=== PATIENT | female | born 1975 | race American Indian/Alaskan Native ===

== ENCOUNTER 2019-05-12 06:22 | Observation (INO) | payer OTHER ==
[2019-05-10 14:35] LABS: Basophils % (Auto) 0.6 % (0.0-1.8); Eosinophils # (Auto) 0.1 K/mm3 (0.0-0.4); Eosinophils % (Auto) 0.9 % (0.0-4.3); Hematocrit 35.4 % (30.3-42.9); Lymphocytes # (Auto) 3.3 K/mm3 (1.2-5.4); Lymphocytes % (Auto) 41.8 % (13.4-35.0); Mean Corpuscular HGB Conc 34 % (30-34); Mean Corpuscular Volume 86 fl (79-97); Monocytes # (Auto) 0.7 K/mm3 (0.0-0.8); Monocytes % (Auto) 8.9 % (0.0-7.3); Platelet Count 251 K/mm3 (140-440); Red Blood Count 4.11 M/mm3 (3.65-5.03); Red Cell Distribution Width 14.3 % (13.2-15.2)
--- NOTE | 2019-05-10 14:42 | Anesthesia Consultation ---
Anesthesia Consult and Med Hx Date of service: 05/10/19 - Airway Anesthetic Teeth Evaluation: Good ROM Head & Neck: Adequate Mental/Hyoid Distance: Adequate Mallampati Class: Class II Intubation Access Assessment: Probably Good - Pulmonary Exam CTA: Yes - Cardiac Exam Cardiac Exam: RRR - Pre-Operative Health Status ASA Pre-Surgery Classification: ASA2 Proposed Anesthetic Plan: General - Pulmonary Hx Smoking: No Hx Respiratory Symptoms: No - Cardiovascular System Hx Hypertension: No (HLD) Hx Heart Attack/AMI: No Hx Cardia Arrhythmia: No - Central Nervous System Hx Seizures: No CVA: No Hx Psychiatric Problems: Yes (anxiety; prn xanax) - Gastrointestinal Hx Gastroesophageal Reflux Disease: No - Endocrine Hx Renal Disease: No Hx Liver Disease: No Hx Insulin Dependent Diabetes: No Hx Non-Insulin Dependent Diabetes: No Hx Thyroid Disease: No - Hematic Hx Anemia: No - Other Systems Hx Alcohol Use: Yes (Occas) Hx Obesity: Yes - Additional Comments Anesthesia Medical History Comments: No hx anesthetic complications. Patient had episode of substernal chest pain in 12/2018 for which she was admitted for cardiac work up. Per discharge summary, cardiac etiology ruled out (actual studies not available for review). >4 mets functional capacity.
[2019-05-10 14:48] LABS: BUN/Creatinine Ratio 13; Blood Urea Nitrogen 10 mg/dL (7-17); Calcium 8.8 mg/dL (8.4-10.2); Hemolysis Index 20
--- NOTE | 2019-05-11 17:36 | History and Physical Report ---
History of Present Illness Date of examination: 05/02/19 History of present illness: Patient has been reassessed/reevaluated. H&P has been reviewed. No interval changes. This is a 43 years old female who complains of menorrhagia and dysmenorrhea The patient notes that she is sexually active and uses contraception. The patient also presents with menstrual disorder. She complains of heavy bleeding, dysmenorrhea, clotting and cramping, but denies irregular menses, mid-cycle spotting, lack of menses, history of ovarian cysts, history of thyroid diseases, history of PCOS, history of bleeding disorder, lightheadedness and fatigue. Interval between menses is 28 days and 30 days. Menstrual flow lasts 7 days and > 7 days. Patient reports that for pain she uses ibuprofen. Patient's work up has included hysterosonogram which revealed a 4cm fundal myoma clear cavity and endometrial biopsy showed benign endometrium. Patient's symptoms when present disrupts her normal daily activities Patient desires definitive treatment Vital Signs: Patient Profile: 44 Years Old Female LMP: 04/27/2019 Height: 61 inches (154.94 cm) Weight: 184 pounds (83.64 kg) BMI: 34.76 BSA: 1.82 Menstrual History: LMP (date): 04/27/2019 Current Method of Contraception: BTL Past History : 2 Term Births: 2 Premature Births: 0 Living Children: 2 Para: 2 Mult. Births: 0 Prev : 2 Aborta: 0 Elect. Ab: 0 Spont. Ab: 0 Ectopics: 0 RESEARCH AND DEVELOPMENT DIRECTOR History Uterine Surgery (not C/S): negative Operations: hand sx C-sectionX2 last with btl Hospitalizations: negative Anesthesia Complications: negative Abnormal PAP: negative Uterine Anomaly: positive fibroids LARISSA Exposure: negative Infertility: negative Infection History HIV Risk Eval: no Personal hx. of genital herpes: no Partner hx. of genital herpes: no Hx of STD: condyloma Current Allergies (reviewed today): No known allergies Past Medical History: MVP Hyperlipidemia hospitalization x 3 days chest pain Patient states no diagnosis made (11/2018) Past Surgical History: hand sx C-sectionX2 last with btl Social History: Patient is occ etoh/no drugs/ Risk Factors: Smoked Tobacco Use: Never smoker Smokeless Tobacco Use: Never Passive smoke exposure: no Drug use: no HIV high-risk behavior: no Alcohol use: yes Exercise: yes Seatbelt use: 100 % Review of Systems General Denies fever, chills, sweats, anorexia, fatigue, weakness, malaise, weight loss and sleep disorder. Complains of menorrhagia, abnormal vaginal bleeding, pelvic pain and painful periods. Denies vaginal discharge, incontinence, dysuria, hematuria, urinary frequency, amenorrhea, genital sores, decreased libido, painful sex, urinary urgency, hot flashes, vaginal dryness, vaginal itching and vaginal odor. CV Denies chest pains, palpitations, syncope, dyspnea on exertion, orthopnea, PND and peripheral edema. Resp Denies cough, dyspnea at rest, excessive sputum, hemoptysis, wheezing and pleurisy. GI Denies nausea, vomiting, diarrhea, constipation, change in bowel habits, abdominal pain, melena, hematochezia, jaundice, gas/bloating, indigestion/heartburn, dysphagia and odynophagia. Breast Denies left breast lump, right breast lump, nipple discharge, bloody discharge from nipple, breast pain, abnormal mammogram and breast enlargement. Psych Denies depression, anxiety, irritability and mood swings. [ Past History Past Medical History: other (SEE HPI) Past Surgical History: Other (SEE HPI) Social history: , full code (SEE HPI) Family history: other (SEE HPI) Medications and Allergies Allergies Allergy/AdvReac Type Severity Reaction Status Date / Time No Known Allergies Allergy Unverified 05/05/19 19:18 Home Medications Medication Instructions Recorded Confirmed Last Taken Type Atomoxetine HCl 40 mg PO DAILY 05/05/19 05/05/19 Unknown History Mv,Iron,Mins/Folic Acid/Biotin 1 each PO DAILY 05/05/19 05/12/19 05/10/19 09:00 History [Hair Formula Tablet] Mv-Min/Folic/Vit K/Lycop/Coq10 1 each PO DAILY 05/05/19 05/12/19 05/10/19 09:00 History [Daily Multivitamin Capsule] Pravastatin Sodium [Pravastatin] 10 mg PO QHS 05/05/19 05/12/19 05/05/19 09:00 History Active Meds: Active Medications Celecoxib (Celebrex) 200 mg PO PREOP NR Stop: 05/12/19 23:59 Fentanyl (Sublimaze) 100 mcg IV ONCE PRN PRN Reason: sedation for nerve block Gabapentin (Neurontin) 300 mg PO PREOP NR Stop: 05/12/19 23:59 Lactated Ringer's (Lactated Ringers) 1,000 mls @ 100 mls/hr IV DIRECT EWA Midazolam HCl (Versed) 2 mg IV PREOP NR Stop: 05/12/19 23:59 Review of Systems Constitutional: other (SEE HPI) Exam - Physical Exam Narrative exam: HEENT: normocephalic, no lesions or deformities Skin no ulcers, xanthomas Chest: respiratory effort normal, clear to auscultation Breasts: skin/areolae normal, no masses, no nipple discharge, no erythema/warmth/tenderness, and axillae normal. CV: regular, normal S1-S2, no murmur, no rub, no gallop Abdomen: Obese, normal bowel sounds, soft, nontender, no HSM Neuro: no gross anomalities Extremities: normal alignment, no joint enlargement, crepitus, masses or tenderness; normal tone and strength RESEARCH AND DEVELOPMENT DIRECTOR Exams Vulva/Vagina: No lesions, normal BUS, normal rugae Cervix: normal appearance, no lesions, no discharge Uterus: unable to palpate due to obesity Adnexae: no masses or tenderness Rectovaginal: exam defered - Constitutional Vitals: Temp Pulse Resp BP Pulse Ox 98.4 F 88 18 153/98 99 05/10/19 14:10 05/10/19 14:10 05/10/19 14:10 05/10/19 14:10 05/10/19 14:10 Results - Labs CBC & Chem 7: 05/10/19 14:28 05/10/19 14:28 Assessment and Plan - Patient Problems (1) Intramural leiomyoma of uterus Current Visit: No Status: Acute Plan to address problem: Diagnosis explained to patient . Questions answered. Patient's symptoms when present disrupts her normal daily activities Patient desires definitive apryl tment Discussed with patient various medical, surgical and radiological therapies common for treatment including myomectomy hysterectomy and uterine artery embolization. She desires myomectomy. Discussed risks and benefits of laparotomy and robotic assisted approaches Patient desires robotic assisted myomectomy Discuss the risks of the surgery including infection, bleeding possibly heavy enough to require a blood transfusion, possible damage to bowel, bladder or ureter. Patient understands that there is a possibility that a hysterectomy maybe indicated for severe bleeding not resoved with conservative measures. Her questions were answered. Patient understands and desires to proceed. Patient advised the small risks of spreading of malignancy if morcellator is used during the surgery patient understands and approve of use if necessary (2) Menorrhagia Current Visit: No Status: Acute Qualifiers: Menorrahagia type: with regular cycle Qualified Code(s): N92.0 - Excessive and frequent menstruation with regular cycle Plan to address problem: Probably secondary to # 1 (3) Dysmenorrhea Current Visit: No Status: Acute Plan to address problem: Probably secondary to # 1 (4) Mitral valve prolapse Current Visit: No Status: Chronic (5) Refusal of blood transfusions as patient is Jainism Current Visit: No Status: Chronic (6) Hyperlipidemia Current Visit: No Status: Chronic Qualifiers: Hyperlipidemia type: unspecified Qualified Code(s): E78.5 - Hyperlipidemia, unspecified
[~2019-05-12 06:22] MED LIST: ANCEF/STERILE WATER 2 GM/20 ML 2 GM/20 ML SYRINGE IV NR; LACTATED RINGERS 1,000 ML IV SCH; NEURONTIN PO NR; SUBLIMAZE IV PRN; VERSED IV NR
[2019-05-12] MEDS ORDERED: ceFAZolin 2 GM in NACL 0.9% 100 ML IV ONE (08:03)
[2019-05-12] MEDS ORDERED: ZOFRAN ONE (08:09)
[2019-05-12] MEDS ORDERED: DECADRON ONE (08:09)
[2019-05-12] MEDS ORDERED: XYLOCAINE MPF 2% ONE ×2 (08:09→11:18)
[2019-05-12] MEDS ORDERED: DIPRIVAN 10 MG/ML IV ONE (08:10)
[2019-05-12] MEDS ORDERED: SUBLIMAZE ONE (08:10)
--- NOTE | 2019-05-12 08:12 | Anesthesia Day of Surgery ---
Anesthesia Day of Surgery - Day of Surgery Patient Examined: Yes Patient H&P Reviewed: Yes Patient is NPO: Yes
[2019-05-12] MEDS ORDERED: NACL 0.9% 100 ML ONE (08:19)
[2019-05-12] MEDS ORDERED: Vasostrict ONE (08:19)
[2019-05-12] MEDS ORDERED: ANCEF/STERILE WATER 2 GM/20 ML 2 GM/20 ML SYRINGE IV NR (09:00)
[2019-05-12] MEDS ORDERED: ZOFRAN IV PRN (09:00)
[2019-05-12] MEDS ORDERED: ACD-A 500 ML IV ONE (09:05)
[2019-05-12] MEDS ORDERED: NACL 0.9% IV ONE (09:43)
[2019-05-12] MEDS ORDERED: Vasostrict IM ONE (09:43)
[2019-05-12] MEDS ORDERED: NACL 0.9% IR ONE (09:44)
[2019-05-12] MEDS ORDERED: MARCAINE-EPI 0.25%-1:200,000 INFILTRATI ONE (10:03)
[2019-05-12] MEDS ORDERED: ZEMURON IV ONE ×2 (10:12→11:14)
[2019-05-12] MEDS ORDERED: MARCAINE 0.25% INFILTRATI ONE (10:13)
[2019-05-12] MEDS ORDERED: ACD-A IV ONE (10:30)
[2019-05-12] MEDS ORDERED: BLOXIVERZ ONE (11:18)
[2019-05-12] MEDS ORDERED: TORADOL ONE (11:18)
[2019-05-12] MEDS ORDERED: ROBINUL ONE (11:18)
--- NOTE | 2019-05-12 11:18 | Operative Report ---
Operative Report Operative Report: Date of procedure: 05/12/2019 Pre-operative diagnosis: Symptomatic leiomyomata Post-operative diagnosis: Same plus pelvic adhesive disease Procedure name(s): Robotic-assisted myomectomy Surgeon: Alban Guillen MD Sales Representative Jewelry: Marilyn Guzman, certified social workers in health care Anesthesia: General endotracheal EBL: 100 mL Complications: None Findings: Patient with enlarged uterus with multiple leiomyomata large approximately 6 cm in the diameter fundal and posteriorly. Patient did had omental adhesions between the anterior abdominal wall above the uterus. She also had thick adhesions between the anterior abdominal wall bladder and anterior uterus. I did take down the omental adhesions but due to the patient's refusal for blood transfusion I did not attempt to take down the thick adhesions of her uterus therefore not increasing the risks of having increased bleeding with the procedure. Filshie clips present on bilateral fallopian tubes. Normal ovaries bilaterally. Total 5 myomas were removed. Specimen(s): Uterine leiomyomata Procedure: Patient taken operating room where general endotracheal anesthesia was induced difficulty. She was placed in dorsal lithotomy position prepped and draped in usual normal sterile fashion for robotic procedure. The cath was placed in urinary bladder without difficulty speculum placed in the vagina. A medium V care uterine manipulator was placed without any difficulty. Then attention was switched to the patient's abdomen. Supra-umbilical incision was made with a knife. Spread with a hemostat. A 10-12 Trocar was placed in this incision while lifting out anterior abdominal wall under direct visualization. Intra- abdominal cavity was entered without any evidence of internal organ damage. Patient was insufflated approximately 3 and half liters of CO2 gas. Patient's pelvic findings noted above. The patient was perceived to be a candidate for robotic procedure. On either side of the midline trocar placement approximately 8 cm two of the 8 mm robotic trocars was placed under direct visualization with no signs of internal organ damage. The third 8 mm robotic trocar was placed in the patient's left lower quadrant. An project construction assistant manager port was placed in the right lower quadrant 2 fingerbreadths above the iliac crest 10-12 trocar. A Kevin Jasmine device was placed in each of the large trocar incisions with Vicryl to aid in fascial closure This time the abdomen patient was positioned in extreme Trendelenburg for the robotic procedure. The da Arthur robot was then docked on the patient's left side in the normal fashion. At that time I my place under the operating fuentes. The omental adhesions were taken down using bipolar grasp ers and the unipolar scissors good hemostasis. Next Pitressin was place in the myometrium under each of the received bowel movements approximately a total of 60 mL use. Starting with the large fundal myoma serosa incision was made in the midline supposed the myoma grasped with the tenaculum both the project construction assistant manager port and through the third robotic arm maneuver cutting with the unipolar scissors this myoma was removed from its bed with good hemostasis placed in the patient's cul-de-sac. The other 4 myomas were removed in similar fashion with good hemostasis in each beds. The smallest myoma was easily removed through the project construction assistant manager port. The remaining and myomas had to be removed with the assistance of the morcellator placed through the project construction assistant manager port. Each morcellation of the myomas were closely watched with no evidence of adjacent organ damage. Did have some spillage of small fragments of the myoma which attempted to remove with the graspers and with irrigation and suction. Attention was switched back to the serosa and myometrial defects. All with good hemostasis of the Bovie. The defects were closed with barbed 0 Vicryl. A baseball stitch was done in an attempt to decrease exposure of suture. The 5 defects were closed with good hemostasis. Jacqueline was placed over the serosal closures attempt to control possible postoperative bleeding. Interceed was placed over the uterine fundus and posteriorly again to attempt to prevent postoperative adhesions. Irrigation was placed over the Interceed . The patient's pelvis was inspected and found to be hemostatic all instruments were then removed. The da Arthur robot was then undocked. The patient was taken out of Trendelenburg position. All trochars were removed. The large trocar incisions were closed in layers with fashion incision closed with Vicryl. All incisions were closed subcuticularly with 4-0 Monocryl. Marcaine was injected in incisions to help with post operative pain relief. Patient was then extubated and awakened in operating room. She was accompanied to the recovery room in good condition.
[2019-05-12] MEDS: DILAUDID IV PRN ×4 (11:50→12:25)
[2019-05-12] MEDS ORDERED: DILAUDID ONE (12:13)
[2019-05-12] MEDS ORDERED: MORPHINE ONE (12:28)
[2019-05-12] MEDS ORDERED: MORPHINE IV PRN (12:30)
[2019-05-12] MEDS ORDERED: DEMEROL IV PRN (13:11)
[2019-05-12] MEDS ORDERED: DEMEROL ONE (13:17)
[2019-05-12] MEDS ORDERED: LACTATED RINGERS 1,000 ML ONE (13:41)
[2019-05-12] MEDS ORDERED: D5LR 1,000 ML IV SCH (14:16)
[2019-05-12] MEDS ORDERED: SODIUM CHLORIDE FLUSH SYRINGE 10 ML IV PRN (14:16)
[2019-05-12] MEDS ORDERED: MILK OF MAGNESIA PO PRN (14:16)
--- NOTE | 2019-05-12 14:23 | Post Anesthesia Evaluation ---
- Post Anesthesia Evaluation Patient Participated: Yes Airway Patent: Yes Stable Respiratory Function: Yes Nausea/Vomiting: No Temp > 96.8F: Yes Pain Manageable: Yes Adequeate Hydration: Yes Anesthesia Complications: No
[2019-05-12] MEDS: TORADOL IV SCH ×2 (14:44→20:00)
[2019-05-12] MEDS: ANCEF/NS 1 GM/50 ML 1 GM/50 ML BAG IV SCH ×2 (14:45→21:44)
[2019-05-12] MEDS: NORCO 5/325 PO PRN ×2 (16:26→21:45)
--- NOTE | 2019-05-12 17:21 | Event Note ---
Date: 05/12/19 Day of surgery. Discuss operative findings with patient and questions answered. Patient without fever. Patient does complain of abdominal pain she denies any nausea or vomiting. Will ambulate in halls this evening. Good urine output. Will remove Coreas catheter. We will continue routine postoperative care.
[2019-05-12] MEDS: COLACE PO SCH (21:45)
[2019-05-13] MEDS: TORADOL IV SCH (02:40)
[2019-05-13 04:38] LABS: Hematocrit 32.1 % (30.3-42.9)
[2019-05-13] MEDS: NORCO 5/325 PO PRN ×2 (05:04→09:22)
--- NOTE | 2019-05-13 08:14 | Progress Note ---
Assessment and Plan Pt resting in bed quietly. VVSAF. Post-op pain /10, suspect r/t gas pain. Pt confirms flatus. Will continue to monitor pain. Light vaginal bleeding. Lap sites dry and intact. Post op H/H 11.0/32.1. HEATH Hopper - Patient Problems (1) S/P myomectomy Current Visit: Yes Status: Acute Plan to address problem: Continue current pathway. Encouraged advanced diet and activity as tolerated. Subjective - Subjective Date of service: 05/13/19 (AIR HAMMER STRIPPER note) Principal diagnosis: Postop Day#1 s/p robotic myomectomy Patient reports: appetite normal, voiding normally, flatus, ambulating normally, no dizzy ambulation, no nauseated Objective - Vital Signs Latest vital signs: Vital Signs Temp Pulse Pulse Resp BP BP Pulse Ox 05/13/19 06:04 18 05/13/19 05:04 18 05/13/19 05:00 98.3 F 93 H 20 142/92 90 05/13/19 03:10 18 05/13/19 02:40 18 05/13/19 00:37 99.1 F 106 H 18 127/83 97 05/12/19 22:45 18 05/12/19 22:00 90 18 05/12/19 21:45 18 05/12/19 21:18 98.7 F 115 H 20 115/71 97 05/12/19 20:30 18 05/12/19 20:00 18 05/12/19 16:16 98.4 F 104 H 16 109/71 95 05/12/19 14:30 100 05/12/19 14:15 97.6 F 90 16 125/76 100 05/12/19 13:30 97.9 F 100 H 12 127/75 95 05/12/19 13:15 101 H 4 L 127/75 98 05/12/19 13:00 88 12 129/65 98 05/12/19 12:45 85 14 149/85 97 05/12/19 12:35 16 05/12/19 12:30 95 H 12 141/74 99 05/12/19 12:25 18 05/12/19 12:15 99 H 20 148/85 98 05/12/19 12:00 97 H 16 129/83 100 05/12/19 11:55 90 20 135/81 100 05/12/19 11:50 93 H 19 126/71 100 05/12/19 11:45 108 H 21 125/67 100 05/12/19 11:40 100 H 20 108/60 100 05/12/19 11:33 98.2 F 98 H 22 111/66 97 Intake and Output 05/12/19 05/13/19 05/13/19 23:59 07:59 15:59 Intake Total 960 960 Output Total 1100 200 Balance -140 760 Intake: Oral 960 Intake, Free Water 960 Output: Urine 1100 200 Indwelling Catheter 900 Void 200 200 Other: Total, Intake Amount 240 Total, Output Amount 200 200 Voiding Method Toilet # Voids 1 Indwelling Catheter 1 - Exam Cardiovascular: Present: Regular rate Lungs: Present: Normal air movement Abdomen: Present: normal appearance Incision: Present: normal, dry, intact. Absent: edematous - Labs Labs: Abnormal lab results 05/12/19 Range/Units 11:49 POC Glucose 148 H (70-105)
[2019-05-13] MEDS: COLACE PO SCH (09:23)
--- NOTE | 2019-05-13 09:35 | Short Stay Summary ---
Short Stay Documentation Date of service: 05/12/19 - History H&P: dictated Past Medical History: other (SEE HPI) Past Surgical History: Other (SEE HPI) Social history: , full code (SEE HPI) - Allergies and Medications Current Medications: Allergies No Known Allergies Allergy (Unverified 05/05/19 19:18) Home Medications Medication Instructions Recorded Confirmed Last Taken Type Atomoxetine HCl 40 mg PO DAILY 05/05/19 05/05/19 Unknown History Mv,Iron,Mins/Folic Acid/Biotin 1 each PO DAILY 05/05/19 05/12/19 05/10/19 09:00 History [Hair Formula Tablet] Mv-Min/Folic/Vit K/Lycop/Coq10 1 each PO DAILY 05/05/19 05/12/19 05/10/19 09:00 History [Daily Multivitamin Capsule] Pravastatin Sodium [Pravastatin] 10 mg PO QHS 05/05/19 05/12/19 05/05/19 09:00 History Ferrous Sulfate [Feosol 325 MG tab] 325 mg PO BID #60 tablet 05/12/19 Unknown Rx Ibuprofen [Motrin 800 MG tab] 800 mg PO Q6H PRN #30 tablet 05/12/19 Unknown Rx oxyCODONE /ACETAMINOPHEN [Percocet 1 - 2 tab PO Q4H PRN #20 tablet 05/12/19 Unknown Rx 5/325 mg] Active Medications Acetaminophen/Hydrocodone Bitart (Rand 5/325) 2 each PO Q4H PRN PRN Reason: Pain, Moderate (4-6) Last Admin: 05/13/19 09:22 Dose: 2 each Documented by: Docusate Sodium (Colace) 100 mg PO BID EWA Last Admin: 05/13/19 09:23 Dose: 100 mg Documented by: Dextrose/Lactated Ringer's (D5lr) 1,000 mls @ 125 mls/hr IV DIRECT EWA Magnesium Hydroxide (Milk Of Magnesia) 30 ml PO Q4H PRN PRN Reason: Constipation Last Admin: 05/13/19 09:23 Dose: 30 ml Documented by: Sodium Chloride (Sodium Chloride Flush Syringe 10 Ml) 10 ml IV PRN PRN PRN Reason: LINE FLUSH - Brief post op/procedure progress note Date of procedure: 05/12/19 (see dictated operative note) - Hospital course Hospital course: Patient was admitted and underwent above procedure without complications. Her post operative course was benign she was afebrile throughout. Patient postoperative hematocrit was in an acceptable range. Patient had no orthostatic symptoms. Patient was tolerating regular diet and voiding without difficulty at time of discharge. Patient was also passing flatus. Patient incision was healing well without evidence of infection. - Disposition Condition at discharge: Good Disposition: DC-01 TO HOME OR SELFCARE - Discharge Diagnoses (1) Intramural leiomyoma of uterus Status: Acute (2) Menorrhagia Status: Acute Qualifiers: Menorrahagia type: with regular cycle Qualified Code(s): N92.0 - Excessive and frequent menstruation with regular cycle (3) Dysmenorrhea Status: Acute (4) Mitral valve prolapse Status: Chronic (5) Refusal of blood transfusions as patient is [place] Status: Chronic (6) Hyperlipidemia Status: Chronic Qualifiers: Hyperlipidemia type: unspecified Qualified Code(s): E78.5 - Hyperlipidemia, unspecified Short Stay Discharge Plan Activity: advance as tolerated Diet: regular Wound: open to air Additional Instructions: Patient instructed no heavy lifting for 4 weeks. Call office for fever, chills, nausea, vomiting or pain not controlled by pain medications. Ambulation is encouraged. Patient's call for heavy vaginal bleeding. Patient instructed to keep her scheduled post operative office appointment. Follow up with: MARIA FERNANDA POTTER MD [Primary Care Provider] - 7 Days Prescriptions: Ferrous Sulfate [Feosol 325 MG tab] 325 mg PO BID #60 tablet Ibuprofen [Motrin 800 MG tab] 800 mg PO Q6H PRN #30 tablet PRN Reason: Pain oxyCODONE /ACETAMINOPHEN [Percocet 5/325 mg] 1 - 2 tab PO Q4H PRN #20 tablet PRN Reason: Pain, Moderate
[2019-05-13 12:41] VITALS: BP 137/86
== END 2019-05-13 19:00 | disposition home or self-care (01) ==
LOC: OR 06:22 → OB 11:20
PROVIDERS: ADMIT Obstetrics & Gynecology; ATTEND Obstetrics & Gynecology
DX: D25.9 Leiomyoma of uterus, unspecified (principal); N73.6 Female pelvic peritoneal adhesions (postinfective); N92.0 Excessive and frequent menstruation with regular cycle; N94.6 Dysmenorrhea, unspecified; E78.5 Hyperlipidemia, unspecified; Z98.890 Other specified postprocedural states; Z53.1 Procedure and treatment not carried out because of patient's decision for reasons of belief and group pressure; I34.1 Nonrheumatic mitral (valve) prolapse
CPT/HCPCS: 36415; 58545; 80048; 82962; 84703; 85014; 85018; 85025; 88305; 96365; 96366; 96375; 96376; A4217; C1765; C1782; G0378; J0690; J1100; J1170; J1885; J2175; J2250; J2270; J2405; J2704; J2710; J3010; J7120

== ENCOUNTER 2019-06-28 10:51 | Outpatient (CLI) | payer OTHER ==
[2019-06-28 11:32] LABS: Blood Urea Nitrogen 9 mg/dL (7-17)
--- NOTE | 2019-06-28 13:50 | Cat Scan Report ---
CT ABDOMEN AND PELVIS WITH CONTRAST HISTORY: PELVIC PAIN,ACUTE/ABDOMINAL PAIN COMPARISON: None. TECHNIQUE: Axial CT images were obtained through the abdomen and pelvis after 100 cc of Omnipaque 300 intravenously. Sagittal and coronal reformatted images. All CT scans at this location are performed using CT dose reduction for ALARA by means of automated exposure control. FINDINGS: CT ABDOMEN: Lung Bases: Clear. Liver: There is moderate diffuse fatty infiltration throughout the liver. No enlargement or focal jaren er lesion. Biliary: No significant abnormality. Spleen: No significant abnormality. Unenlarged. Pancreas: No significant abnormality. Adrenals: No significant abnormality. Kidneys: No significant abnormality. Lymphatics: No lymphadenopathy. Vasculature: No significant abnormality. Bowel/Peritoneum: No significant abnormality. No free air. No free fluid. Normal appendix. CT PELVIS: : The uterus is anteverted. The uterus appears to be tethered to the anterior pelvic wall. No obvio us uterine fibroid disease. The endometrium is unremarkable. The ovaries are within normal limits. Bi lateral tubal ligation clips are identified. The bladder and distal ureters are within normal limits. Osseous Structures: No significant abnormality. Additional Findings: None IMPRESSION: No acute inflammatory process is identified. Hepatic steatosis. The uterus appears tethered to the anterior pelvic wall. Is there clinical concern for pelvic adhesio ns Signer Name: Xander Russo Jr, MD Signed: 06/28/2019 1:46 PM Workstation Name: [id number]
== END 2019-06-28 10:52 | disposition home or self-care (01) ==
LOC: CT 10:51
PROVIDERS: ATTEND Obstetrics & Gynecology
DX: K76.0 Fatty (change of) liver, not elsewhere classified (principal); R10.2 Pelvic and perineal pain; R11.0 Nausea; E78.5 Hyperlipidemia, unspecified; E78.00 Pure hypercholesterolemia, unspecified; E66.9 Obesity, unspecified; I10 Essential (primary) hypertension
CPT/HCPCS: 36415; 74177; 82565; 84520; Q9967

== ENCOUNTER 2021-03-28 06:08 | Observation (INO) | payer OTHER ==
--- NOTE | 2021-03-25 11:46 | Anesthesia Consultation ---
Anesthesia Consult and Med Hx Date of service: 03/28/21 - Airway Anesthetic Teeth Evaluation: Good ROM Head & Neck: Adequate Mental/Hyoid Distance: Adequate Mallampati Class: Class II Intubation Access Assessment: Probably Good - Pulmonary Exam CTA: Yes - Cardiac Exam Cardiac Exam: RRR - Pre-Operative Health Status ASA Pre-Surgery Classification: ASA2 Proposed Anesthetic Plan: General Nerve Block: TAP - Pulmonary Hx Smoking: No Hx Respiratory Symptoms: No - Cardiovascular System Hx Hypertension: Yes Hx Heart Attack/AMI: No Hx Percutaneous Transluminal Coronary Angioplasty (PTCA): No Hx Cardia Arrhythmia: No Hx Valvular Heart Disease: Yes (MVP; asymptomatic) - Central Nervous System CVA: No Hx Psychiatric Problems: Yes (ADHD (no meds), anxiety) - Endocrine Hx Renal Disease: No Hx Liver Disease: No Hx Insulin Dependent Diabetes: No Hx Non-Insulin Dependent Diabetes: No Hx Thyroid Disease: No - Other Systems Hx Obesity: Yes (BMI 36) - Additional Comments Anesthesia Medical History Comments: Hx PONV. Patient is Jehova's Witness and declines blood products. Cell saver OK.
[2021-03-25 12:33] LABS: Basophils % (Auto) 0.3 % (0.0-1.8); Eosinophils # (Auto) 0.1 K/mm3 (0.0-0.4); Hemoglobin 13.9 gm/dl (10.1-14.3); Lymphocytes # (Auto) 3.2 K/mm3 (1.2-5.4); Lymphocytes % (Auto) 33.8 % (13.4-35.0); Mean Corpuscular HGB Conc 35 % (30-34); Mean Corpuscular Volume 87 fl (79-97); Monocytes # (Auto) 0.8 K/mm3 (0.0-0.8); Monocytes % (Auto) 8.5 % (0.0-7.3); Platelet Count 255 K/mm3 (140-440); Red Blood Count 4.59 M/mm3 (3.65-5.03); Red Cell Distribution Width 14.6 % (13.2-15.2)
[2021-03-25 12:36] LABS: Blood Urea Nitrogen 6 mg/dL (7-17); Calcium 9.6 mg/dL (8.4-10.2); Hemolysis Index 10
[2021-03-25 12:37] LABS: BUN/Creatinine Ratio 9
--- NOTE | 2021-03-27 17:46 | History and Physical Report ---
History of Present Illness Date of examination: 03/25/21 History of present illness: Patient has been reassessed/reevaluated. H&P has been reviewed. No interval changes. This is a 45 years old female who presents with menstrual disorder. She complains of heavy bleeding and history of fibroids, but denies irregular men ses, mid-cycle spotting, lack of menses, dysmenorrhea, clotting, history of ovarian cysts, history of thyroid disease, history of PCOS, history of bleeding disorder, lightheadedness, fatigue and cramping. Interval between menses is 28 days and 30 days. Menstrual flow lasts 5 days. Patient reports that for pain she uses ibuprofen. Patient's symptoms when present disrupts her normal daily activities Treatment tried to date includes myomectomy. Prior to today's visit the patient has had multiple ultrasounds and CT scans of pelvis. Conservative therapies have failed. Patient desires definitive treatment ] Vital Signs: Patient Profile: 45 Years Old Female LMP: 03/15/2021 Height: 61 inches (154.94 cm) Weight: 189 pounds BMI: 35.71 Temp: 96.7 degrees F BP sittin / 80 (left arm) Menstrual History: LMP (date): 03/15/2021 Past History : 2 Term Births: 2 Premature Births: 0 Living Children: 2 Para: 2 Mult. Births: 0 Prev : 2 Aborta: 0 Elect. Ab: 0 Spont. Ab: 0 Ectopics: 0 [employer] History Uterine Surgery (not C/S): negative Operations: hand sx C-sectionX2 last with btl Robotic Myomectomy (05/12/2019) Hospitalizations: negative Anesthesia Complications: negative Abnormal PAP: negative Uterine Anomaly: positive fibroids LARISSA Exposure: negative Infertility: negative Infection History HIV Risk Eval: no Personal hx. of genital herpes: no Partner hx. of genital herpes: no Hx of STD: condyloma Current Allergies (reviewed today): No known allergies Past Medical History: MVP Hyperlipidemia hospitalization x 3 days chest pain Patient states no diagnosis made (11/2018) Fibroids Past Surgical History: Hand sx C-sectionX2 last with btl Robotic Myomectomy (05/12/2019) Family History Summary: DM Thyroid Dz CHTN Family History Breast Cancer Paternal aunt Family History of Colon Cancer Maternal great uncle No Family History of DVT/PE on OCP Social History: Patient is occ etoh/no drugs/ Risk Factors: Smoked Tobacco Use: Never smoker Smokeless Tobacco Use: Never Passive Smoke Exposure: no Caffeine Use: 1 drinks per day Seatbelt Use: 100 % Alcohol Use: yes Type: OCC Drug Use: no Review of Systems General Complains of fatigue. Denies fever, chills, sweats, anorexia, weakness, malaise, weight loss and sleep disorder. Complains of menorrhagia and pelvic pain. Denies vaginal discharge, incontinence, dysuria, hematuria, urinary frequency, amenorrhea, abnormal vaginal bleeding, genital sores, decreased libido, painful periods, painful sex, urinary urgency, hot flashes, vaginal dryness, vaginal itching and vaginal odor. CV Denies chest pains, palpitations, syncope, dyspnea on exertion, orthopnea, PND and peripheral edema. Resp Denies cough, dyspnea at rest, excessive sputum, hemoptysis, wheezing and pleurisy. GI Denies nausea, vomiting, diarrhea, constipation, change in bowel habits, abdominal pain, melena, hematochezia, jaundice, gas/bloating, indigestion/heartburn, dysphagia and odynophagia. Breast Denies left breast lump, right breast lump, nipple discharge, bloody discharge from nipple, breast pain, abnormal mammogram and breast enlargement. Psych Denies depression, anxiety, irritability and mood swings. Past History Past Medical History: other (SEE HPI FOR DETAILS) Past Surgical History: Other (SEE HPI FOR DETAILS) Social history: full code, other (SEE HPI FOR DETAILS) Family history: other (SEE HPI FOR DETAILS) Medications and Allergies Allergies Allergy/AdvReac Type Severity Reaction Status Date / Time No Known Allergies Allergy Unverified 05/05/19 19:18 Home Medications Medication Instructions Recorded Confirmed Last Taken Type Fenofibrate [Tricor] 145 mg PO QDAY 03/19/21 03/19/21 Unknown History Hydrochlorothiazide 12.5 mg PO DAILY 03/19/21 03/19/21 Unknown History Ibuprofen [Motrin 800 MG tab] 800 mg PO PRN PRN 03/19/21 Unknown History Zetia 10 mg PO DAILY 03/19/21 03/19/21 Unknown History Active Meds: Active Medications Acetaminophen (Acetaminophen 500 Mg Tab) 1,000 mg PO PREOP EWA Stop: 03/28/21 20:00 Celecoxib (Celecoxib 200 Mg Cap) 200 mg PO PREOP NR Stop: 03/28/21 20:00 Fentanyl (Fentanyl 100 Mcg/2 Ml Inj) 100 mcg IV ONCE PRN PRN Reason: sedation for nerve block Stop: 03/28/21 20:00 Gabapentin (Gabapentin 300 Mg Cap) 300 mg PO PREOP NR Stop: 03/28/21 20:00 Lactated Ringer's (Lactated Ringers) 1,000 mls @ 100 mls/hr IV DIRECT EWA Stop: 03/28/21 23:59 Midazolam HCl (Midazolam 2 Mg/2 Ml Inj) 2 mg IV PREOP NR Stop: 03/28/21 20:00 Scopolamine (Scopolamine Transdermal Patch 72 Hr) 1 each TD PREOP NR Stop: 03/28/21 23:00 Review of Systems Constitutional: other (SEE HPI FOR DETAILS) Exam - Physical Exam Narrative exam: HEENT: normocephalic, no lesions or deformities Skin no ulcers, xanthomas Chest: respiratory effort normal, clear to auscultation Breasts: skin/areolae normal, no masses, no nipple discharge, no erythema/warmth/tenderness, and axillae normal. CV: regular, normal S1-S2, no murmur, no rub, no gallop Abdomen: Obese multiple surgical scar normal bowel sounds, sof,tno HSM Tender in suprapubic area, soft, no masses Musculoskeletal: grossly normal ROM in joints, no joint tenderness or muscle weakness Neuro: no gross anomalities Extremities: normal alignment, no joint enlargement, crepitus, masses or tenderness; normal tone and strength [employer] Exams Vulva/Vagina: No lesions, normal BUS, normal rugae Cervix: normal appearance, no lesions, no discharge Uterus: unable to palpate due to obesity Adnexae: no masses or tenderness Rectovaginal: exam defered - Constitutional Vitals: Temp Pulse Resp BP Pulse Ox 98.6 F 91 H 20 130/84 98 03/25/21 11:30 03/25/21 11:30 03/25/21 11:30 03/25/21 11:30 03/25/21 11:30 Results - Labs CBC & Chem 7: 03/25/21 06:00 03/25/21 06:00 Assessment and Plan - Patient Problems (1) Dysmenorrhea Current Visit: No Status: Acute Plan to address problem: Patient's symptoms when present disrupts her normal daily activities. Conservative therapies have failed. Patient desires definitive treatment Patient desires hysterectomy Discussed risks and benefits of laparotomy, laparoscopy, vaginal and robotic assisted approaches for hysterectomies. Patient desires robotic assisted total hysterectomy. Consent reviewed and signed . The risks and alternatives for this surgery were reviewed with the patient. Discuss the risks of the surgery including infection, bleeding possibly heavy enough to require a blood transfusion, possible damage to bowel, bladder or ureter. Patient understand that this surgery with make her sterile.Patient understands if her ovaries are removed she will become menopausal. Also if unable to complete robitcally a laparotomy may be required. Patient understands and desires to proceed. (2) Menorrhagia Current Visit: No Status: Acute Plan to address problem: Same #1 (3) Intramural leiomyoma of uterus Current Visit: No Status: Chronic (4) Hyperlipidemia Current Visit: No Status: Chronic Qualifiers: Hyperlipidemia type: unspecified Qualified Code(s): E78.5 - Hyperlipidemia, unspecified (5) Mitral valve prolapse Current Visit: No Status: Chronic (6) Refusal of blood transfusions as patient is Scientology Current Visit: No Status: Chronic Plan to address problem: Patient refuses blood transfusion under any circumstances. She has allowed cell saver. (7) Pelvic adhesions Current Visit: No Status: Acute Plan to address problem: Patient understands her risks of adjacent organ damage is increased due to her previous surgery(ies) (8) BMI 36.0-36.9,adult Current Visit: No Status: Acute Plan to address problem: Patient has been advised that obesity does increase risks of surgical and risks of post operative complications.
[~2021-03-28 06:08] MED LIST changes: +ACETAMINOPHEN 500 MG TAB PO SCH; -ANCEF/STERILE WATER 2 GM/20 ML 2 GM/20 ML SYRINGE IV NR; +CELECOXIB 200 MG CAP PO NR; +GABAPENTIN 300 MG CAP PO NR; +MIDAZOLAM 2 MG/2 ML INJ IV NR; -NEURONTIN PO NR; +SCOPOLAMINE TRANSDERMAL PATCH 72 HR TD NR; -SUBLIMAZE IV PRN; -VERSED IV NR; +ceFAZolin/Water 2 GM/20 ML 2 GM/20 ML SYRINGE IV NR; +fentaNYL 100 MCG/2 ML INJ IV PRN
[2021-03-28] MEDS ORDERED: ROCURONIUM 50 MG/5 ML INJ IV ONE (07:05)
[2021-03-28] MEDS ORDERED: LIDOCAINE MPF (2%) 20 MG/1 ML VIAL 5 ML ONE (07:05)
[2021-03-28] MEDS ORDERED: ONDANSETRON 4 MG/2 ML INJ ONE (07:05)
[2021-03-28] MEDS ORDERED: fentaNYL 100 MCG/2 ML INJ ONE (07:06)
[2021-03-28] MEDS ORDERED: propofoL 200 MG/20 ML VIAL IV ONE (07:06)
[2021-03-28] MEDS ORDERED: SUCCINYLCHOLINE CHLORIDE 200 MG/10 ML INJ MDV ONE (07:07)
[2021-03-28] MEDS ORDERED: LIDOCAINE (1%) 10 MG/1 ML VIAL 20 ML MDV ONE (07:11)
[2021-03-28] MEDS ORDERED: dexAMETHasone 4 MG/ML VIAL ONE (07:11)
[2021-03-28] MEDS ORDERED: cloNIDine/PF 1,000 MCG/10 ML VIAL EP ONE (07:11)
[2021-03-28] MEDS ORDERED: BUPIVACAINE/PF (0.25%) 2.5 MG/ML 30 ML VIAL INFILTRATI ONE (07:11)
[2021-03-28] MEDS ORDERED: METHYLENE BLUE 50 MG/10 ML AMP ONE (07:13)
[2021-03-28] MEDS ORDERED: CITRIC ACID-SOD CITRATE 500 ML IV ONE (07:14)
[2021-03-28] MEDS ORDERED: BUPIVACAINE-EPINEPHRINE/PF 0.25%-1:200,000 (30 ML) VIAL INFILTRATI ONE (07:14)
[2021-03-28] MEDS ORDERED: NEOMY 40 MG/POLYMYXIN B 200,000 UNITS/ML (GU) AMPULE IR ONE ×2 (07:14→09:28)
[2021-03-28] MEDS ORDERED: ePHEDrine SULFATE 50 MG/1 ML INJ ONE (07:14)
[2021-03-28] MEDS ORDERED: ceFAZolin/Water 2 GM/20 ML 2 GM/20 ML SYRINGE IV ONE (07:35)
[2021-03-28] MEDS ORDERED: ceFAZolin/STERILE WATER 2 GM/20 ML SYRINGE IV NR (08:00)
--- NOTE | 2021-03-28 08:12 | Anesthesia Day of Surgery ---
Anesthesia Day of Surgery - Day of Surgery Patient Examined: Yes Patient H&P Reviewed: Yes Patient is NPO: Yes
[2021-03-28] MEDS ORDERED: HYDROmorphone 1 MG/1 ML INJ ONE (08:18)
[2021-03-28] MEDS ORDERED: ONDANSETRON 4 MG/2 ML INJ IV PRN (08:30)
[2021-03-28] MEDS ORDERED: SODIUM CHLORIDE 0.9% IRR 1,500 ML BOTTLE IR ONE (09:28)
[2021-03-28] MEDS ORDERED: METHYLENE BLUE 50 MG/10 ML AMP IV ONE (09:28)
[2021-03-28] MEDS ORDERED: SODIUM CHLORIDE 0.9% IRRIG SOLN 2000 ML IR ONE (09:28)
[2021-03-28] MEDS ORDERED: PHENYLEPHRINE/NS 1,000 MCG/10 ML SYRINGE (OR USE) IV ONE (10:00)
[2021-03-28] MEDS: HYDROmorphone 1 MG/1 ML INJ IV PRN ×3 (11:37→12:40)
--- NOTE | 2021-03-28 11:45 | Operative Report ---
Operative Report Operative Report: Date of procedure: March 28, 2021 Pre-operative diagnosis: Menorrhalgia, dysmenorrhea, pelvic pain, pelvic ad hesive disease and leiomyomata Post-operative diagnosis: Same Procedure name(s):Robotic Assisted Total Hysterectomy with bilateral salpingectomy with lysis of adhesions Surgeon: Alban Guillen MD Body Coverer: Marilyn Guzman, american board certified orthotist Anesthesia: General EBL: 50 cc Complications: None Findings: Patient with omental adhesions to the fundus of the uterus and take adhesion anterior abdominal wall and to the bladder anteriorly. Uterus approximately 8 weeks in size. Small leiomyomata as were noted anteriorly. Filshie clips were present on both fallopian tubes. Normal-appearing ovaries bilaterally. Adhesions between the round ligament ligaments bilaterally and anterior abdominal wall. Specimen(s): Uterus with cervix and bilateral fallopian tubes Procedure: Patient was brought to the operating room where general anesthesia was induced without difficulty. Patient was placed in the dorsal lithotomy position. Prepped and draped in the usual sterile manner for robotic procedure. Coreas catheter was placed without difficulty. Speculum was placed in the vagina. A medium V-Care Uterine manipulator was placed without difficulty. Attention was now switched to the patient's abdomen. A vertical supra-umbilicus incision was made with a scalpel. A 10-12 trocar was placed in this incision under direct visualization. Intra-abdominal placement was verified with no evidence of internal organ damage. The patient pelvic findings were noted as above. It was determined that the patient was a candidate for robotic procedure. On both sides the umbilical incision at about 8 cm, incisions were made for robotic trocars. Each robotic trocar was placed under direct visualization with no evidence of internal organ damage. One 5 mm trocar was placed 2 fingerbreadths above the right iliac crest. A 5 mm camera was placed in the right lower quadrant trocar, the 10-12 trocar was removed and a Kevin Jasmine laparoscopic port closure device was placed through this incision under direct visualization with no evidence of internal organ damage. The camera was then replaced into this port. At this time the patient was placed in extreme Trendelenburg. The da Arthur robot was then docked on the patient's left side. The trocars connected to the robot appropriately robotic instruments were placed under direct visualization no evidence of internal organ damage.. At this time I took my place under the robotic operating fuentes. Started with lysing the abdominal wall adhesions both bluntly and sharply releasing the fundus from the uterus from the anterior abdominal wall. This had an anterior leiomyomata was then found. The adhesions were then taken down further freeing the uterus but I stopped due to very thick adhesions anteriorly, making it unclear the exact location of the bladder. The decision was then made to start on visualizing the uterine vessels. The omental adhesions were then taken down from the fundus and posterior uterus freeing up the uterus more. Starting on the patient's right side the ureter was identified and found to be out of the operative field. Using the robotic vessel sealer the mesosalpinx under the fallopian tube were cauterized and cut starting from the distal end. Utero-ovarian complex was then cauterized and cut. This was followed by cauterizing and cutting the right fallopian tube and right round ligament at the lysis of adhesions from the anterior abdominal wall.. The broad ligament was then opened. The bladder flap was formed anteriorly. The posterior broad ligament was then excised. The uterine vessels were skeletonized. The ureter was clearly seen out of the operative field. The right uterine vessels were then cauterized and cut. Attention was then switched to the patient's left side. The same procedure was repeated on the left side with perform the salpingectomy followed by isolating the uterine vessels cauterized and cutting and completing the bladder flap from the left side is much this could be done due to the adhesions anteriorly. 120 cc of diluted methylene blue was then placed in the bladder. There were no evidence of cystotomy. This time I carefully proceeded with lysis of the anterior adhesions, freeing the anterior uterus with no evidence of damage to her bladder. Further cauterized and and cutting uterine vessels on both sides the uterus was started with cyanotic appearing. After inspecting the bladder flap to insured no evidence of bladder injury, the colpotomy was then started. Incision started at 12:00 until the V-Care could be seen. This incision was extended from 12:00 to 9:00. Then from 12:00 to 3:00. Then from 9:00 to 6:00. This incision was extended from 3:00 to 6:00. At this time colpotomy was complete with no evidence of adjacent organ damage. The surgery scheduler remove the uterus from through the colpotomy site. The Coreas catheter was then unclamped. The vaginal cuff was irrigated and cauterized and found to be hemostatic. The cuff was closed with roboticly using 0 V- Lock suture. This closure was hemostatic after irrigation and Bovie. All pedicles were inspected and found to be hemostatic. The ureters were identified bilaterally and found to be functioning normal. The patient had clear urine in the Coreas catheter with no evidence of mixture with blood. Jacqueline was placed on the cuff and pedicles for postoperative hemostasis . All instruments were then removed. The large trocar sites were closed in layers 2-0 Vicryl and 4-0 Monocryl. The smaller incisions were closed subcuticularly with 4-0 Monocryl. Dermabond was placed over the skin incisions. The patient tolerated procedure well. She was awakened in the operating room and accompanied to the recovery room in good condition.
[2021-03-28] MEDS ORDERED: D5W/LACTATED RINGERS 1,000 ML IV ONE (13:06)
[2021-03-28] MEDS ORDERED: ACETAMINOPHEN 325 MG TAB PO PRN (13:51)
[2021-03-28] MEDS ORDERED: HYDROcodone/ACETAMINOPHEN 5-325 MG TAB PO ONE (14:15)
[2021-03-28] MEDS: HYDROcodone/ACETAMINOPHEN 5-325 MG TAB PO PRN ×2 (14:28→21:18)
[2021-03-28] MEDS ORDERED: D5W/LACTATED RINGERS 1,000 ML IV SCH (14:51)
[2021-03-28] MEDS: ceFAZolin/NS 1 GM/50 ML 1 GM/50 ML BAG IV SCH ×2 (15:27→23:40)
[2021-03-28] MEDS ORDERED: diphenhydrAMINE 25 MG CAP PO PRN (15:36)
[2021-03-28] MEDS ORDERED: NALOXONE 0.4 MG/1 ML INJ IV PRN (15:37)
[2021-03-28] MEDS: MORPHINE 4 MG/1 ML INJ IV PRN ×2 (15:54→23:25)
--- NOTE | 2021-03-28 16:12 | Event Note ---
Date: 03/28/21 Day of surgery. Discuss operative findings with patient and questions answered. Patient without fever. Patient has been up did have slight dizziness. Will ambulate in halls this evening. Good urine output. We will remove Coreas catheter. We will continue routine postoperative care.
[2021-03-28] MEDS: KETOROLAC 30 MG/1 ML INJ IV SCH (17:47)
[2021-03-28] MEDS: DOCUSATE SODIUM 100 MG CAP PO SCH (21:24)
[2021-03-28] MEDS ORDERED: MAGNESIUM HYDROXIDE (MOM) ORAL LIQD UDC PO PRN (22:47)
[2021-03-29] MEDS: KETOROLAC 30 MG/1 ML INJ IV SCH ×3 (00:50→12:15)
[2021-03-29] MEDS: MORPHINE 4 MG/1 ML INJ IV PRN (03:25)
[2021-03-29 04:04] LABS: Hematocrit 35.9 % (30.3-42.9)
[2021-03-29] MEDS: HYDROcodone/ACETAMINOPHEN 5-325 MG TAB PO PRN ×2 (05:48→14:23)
[2021-03-29] MEDS ORDERED: ONDANSETRON 4 MG ODT TAB PO PRN (06:55)
[2021-03-29] MEDS ORDERED: LIP THERAPY VASELINE TP PRN (09:00)
[2021-03-29] MEDS: DOCUSATE SODIUM 100 MG CAP PO SCH (10:00)
--- NOTE | 2021-03-29 12:35 | Progress Note ---
Assessment and Plan - Patient Problems (1) Nausea & vomiting Current Visit: Yes Status: Acute Qualifiers: Vomiting Intractability: non-intractable Plan to address problem: Patient with progressing symptoms of GI symptoms will obtain abdominal x-ray (2) Dysmenorrhea Current Visit: No Status: Acute (3) Menorrhagia Current Visit: No Status: Acute (4) Intramural leiomyoma of uterus Current Visit: No Status: Chronic (5) Hyperlipidemia Current Visit: No Status: Chronic Qualifiers: Hyperlipidemia type: unspecified Qualified Code(s): E78.5 - Hyperlipidemia, unspecified (6) Mitral valve prolapse Current Visit: No Status: Chronic (7) Refusal of blood transfusions as patient is Bahai Current Visit: No Status: Chronic (8) Pelvic adhesions Current Visit: No Status: Acute (9) BMI 36.0-36.9,adult Current Visit: No Status: Acute (10) Postoperative ileus Current Visit: Yes Status: Acute Plan to address problem: Patient status post lysis of adhesions during her surgery and now with progressively worsened GI symptoms will obtain a abdominal x-ray to rule out possible obstruction. Subjective Date of service: 03/29/21 Patient Reports: Positive: still having pain, pain is less, voiding w/o difficulty, vomiting, afebrile (Patient with complaints of dry heaves and nausea this morning and states that she threw up her breakfast) Objective Vital Signs - 12hr 03/29/21 03/29/21 06:18 07:58 Temperature 98.0 F 98.0 F Pulse Rate 91 H 87 Respiratory 18 18 Rate Blood Pressure 103/53 100/46 O2 Sat by Pulse 98 99 Oximetry - General physical appearance well developed, no distress - Respiratory normal respiratory effort - Abdomen tender (Appropriate postop), bowel sounds hypoactive, distended (Moderately), not rebound, not guarding, surgical scars (Healing well) - Integumentary no rash, no growths, no abnormal pigmentation - Musculoskeletal normal gait, normal posture - Psychiatric oriented to time, oriented to person, oriented to place, speech is normal, memory intact - Labs 03/29/21 03:40 03/25/21 06:00
--- NOTE | 2021-03-29 15:29 | XRay Report ---
ABDOMEN 2 VIEW(S) INDICATION / CLINICAL INFORMATION: Vomiting r/o obstruction. COMPARISON: None available. FINDINGS: TUBES / LINES: None. BOWEL GAS PATTERN: No significant abnormality. FREE AIR / EXTRALUMINAL GAS: None seen. ADDITIONAL FINDINGS: No significant additional findings. IMPRESSION: No significant abnormality. No evidence for GI obstruction. Signer Name: Xander Russo Jr, MD Signed: 03/29/2021 3:25 PM Workstation Name: [id number]
[2021-03-29 17:21] VITALS: BP 104/53
--- NOTE | 2021-03-29 17:55 | Short Stay Summary ---
Short Stay Documentation Date of service: 03/29/21 - History Past Medical History: other (SEE HPI FOR DETAILS) Past Surgical History: Other (SEE HPI FOR DETAILS) Social history: full code, other (SEE HPI FOR DETAILS) - Allergies and Medications Current Medications: Allergies No Known Allergies Allergy (Unverified 05/05/19 19:18) Home Medications Medication Instructions Recorded Confirmed Last Taken Type Fenofibrate [Tricor] 145 mg PO QDAY 03/19/21 03/19/21 03/27/21 19:00 History Hydrochlorothiazide 12.5 mg PO DAILY 03/19/21 03/19/21 03/27/21 19:00 History Ibuprofen [Motrin 800 MG tab] 800 mg PO PRN PRN 03/19/21 03/28/21 Unknown History Zetia 10 mg PO DAILY 03/19/21 03/19/21 03/27/21 19:00 History Ferrous Sulfate [Feosol 325 MG tab] 325 mg PO BID #60 tablet 03/28/21 Unknown Rx Ibuprofen [Motrin] 800 mg PO TID PRN #30 tablet 03/28/21 Unknown Rx oxyCODONE /ACETAMINOPHEN [Percocet 1 tab PO Q6HR PRN #20 tablet 03/28/21 Unknown Rx 5/325 mg] Active Medications Acetaminophen (Acetaminophen 325 Mg Tab) 650 mg PO Q4H PRN PRN Reason: Pain MILD(1-3)/Fever >100.5/HANNA Hydrocodone Bitart/Acetaminophen (Hydrocodone/Acetaminophen 5-325 Mg Tab) 2 each PO Q6H PRN PRN Reason: Pain, Moderate (4-6) Last Admin: 03/29/21 14:23 Dose: 2 each Documented by: Docusate Sodium (Docusate Sodium 100 Mg Cap) 100 mg PO BID [facility] Last Admin: 03/28/21 21:24 Dose: 100 mg Documented by: Hydrophilic Ointment (Lip Therapy Vaseline) 1 applic TP DIRECT PRN PRN Reason: Dry Lips Dextrose/Lactated Ringer's (D5lr) 1,000 mls @ 125 mls/hr IV DIRECT EWA Ketorolac Tromethamine (Ketorolac 30 Mg/1 Ml Inj) 30 mg IV Q6H [facility] Stop: 04/02/21 16:59 Last Admin: 03/29/21 12:15 Dose: 30 mg Documented by: Magnesium Hydroxide (Magnesium Hydroxide (Mom) Oral Liqd Udc) 30 ml PO Q6H PRN PRN Reason: Constipation Last Admin: 03/28/21 23:25 Dose: 30 ml Documented by: Naloxone HCl (Naloxone 0.4 Mg/1 Ml Inj) 0.2 mg IV Q2MIN PRN PRN Reason: Res Rate </= 8 or 02 SAT < 92% Ondansetron HCl (Ondansetron 4 Mg Odt Tab) 4 mg PO Q8H PRN PRN Reason: Nausea And Vomiting Last Admin: 03/29/21 08:13 Dose: 4 mg Documented by: - Physical exam General appearance: no acute distress Integumentary: no rash HEENT: Atraumatic Lungs: Normal air movement Breasts: deferred Heart: Regular rate Gastrointestinal: normal, hypoactive bowel sounds, tenderness (Appropriate postoperative), distended (Moderately secondary to recent robotic surgery), obese Female Genitourinary: normal Rectal Exam: deferred Extremities: no ischemia, No edema Neurological: Normal gait, Normal speech - Brief post op/procedure progress note Date of procedure: 03/28/21 (See operative note for details) - Hospital course Hospital course: Patient was admitted and underwent above procedure without complications. Her post operative course extended due to complaints of nausea and vomiting.. She was afebrile throughout. Patient postoperative day 1 hematocrit was in an acceptable range. Patient had no orthostatic symptoms. Patient underwent a abdominal x-ray which showed no evidence of obstruction, patient was tolerating regular diet with positive bowel movements and voiding without difficulty at time of discharge. Patient desired discharge home. Patient incision was healing well without evidence of infection. - Disposition Condition at discharge: Good Disposition: DC-01 TO HOME OR SELFCARE - Discharge Diagnoses (1) Nausea & vomiting Status: Acute Qualifiers: Vomiting Intractability: non-intractable (2) Dysmenorrhea Status: Acute (3) Menorrhagia Status: Acute (4) Intramural leiomyoma of uterus Status: Chronic (5) Hyperlipidemia Status: Chronic Qualifiers: Hyperlipidemia type: unspecified Qualified Code(s): E78.5 - Hyperlipidemia, unspecified (6) Mitral valve prolapse Status: Chronic (7) Refusal of blood transfusions as patient is Restoration Status: Chronic (8) Pelvic adhesions Status: Acute (9) BMI 36.0-36.9,adult Status: Acute (10) Postoperative ileus Status: Acute Short Stay Discharge Plan Activity: advance as tolerated Diet: regular Wound: open to air Additional Instructions: Patient to call office for any excessive vaginal bleeding, fever, chills, nausea, vomiting or pain not controlled by pain medication. Follow up with: MARIA FERNANDA POTTER MD [Primary Care Provider] - 7 Days Prescriptions: Ferrous Sulfate [Feosol 325 MG tab] 325 mg PO BID #60 tablet Ibuprofen [Motrin] 800 mg PO TID PRN #30 tablet PRN Reason: Pain oxyCODONE /ACETAMINOPHEN [Percocet 5/325 mg] 1 tab PO Q6HR PRN #20 tablet PRN Reason: Pain
== END 2021-03-29 20:00 | disposition home or self-care (01) ==
LOC: OR 06:08 → OB 12:34
PROVIDERS: ADMIT Obstetrics & Gynecology; ATTEND Obstetrics & Gynecology
DX: N92.0 Excessive and frequent menstruation with regular cycle (principal); Z20.822 Contact with and (suspected) exposure to COVID-19; N73.6 Female pelvic peritoneal adhesions (postinfective); D25.1 Intramural leiomyoma of uterus; N94.6 Dysmenorrhea, unspecified; E78.5 Hyperlipidemia, unspecified; I34.1 Nonrheumatic mitral (valve) prolapse; Z98.890 Other specified postprocedural states; Z53.1 Procedure and treatment not carried out because of patient's decision for reasons of belief and group pressure; Z90.710 Acquired absence of both cervix and uterus; Z68.36 Body mass index [BMI] 36.0-36.9, adult; Z98.891 History of uterine scar from previous surgery; Z79.899 Other long term (current) drug therapy
CPT/HCPCS: 36415; 58571; 64450; 74019; 80048; 84703; 85014; 85018; 85025; 88307; 96365; 96366; 96375; 96376; A4217; C1765; G0378; J0330; J0690; J0735; J1100; J1170; J1885; J2250; J2270; J2405; J2704; J3010; J7120; Q9968; S2900; U0003; J2370; J7121; Q0162